=== PATIENT | male | born 1955 | race Caucasian/White ===

== ENCOUNTER 2024-03-16 17:25 | Emergency (ER) | payer MEDICARE, SELFPAY ==
[2024-03-16] VITALS (7 sets, daily range): BP systolic 154–210; BP diastolic 85–129; BMI 27.2
[2024-03-16 17:58] LABS: % Basophils 0.7 % (0-2); % Eosinophils 0.6 % (0-6); % Immature Granulocytes 0.4 % (0-0.5); % Lymphocytes 24.5 % (20.5-51.1); % Monocytes 11.2 % (1.7-9.3); % Neutrophils 62.6 % (42.2-75.2); Absolute Basophils 0.1 10^3/uL (0-0.2); Absolute Lymphocytes 1.7 10^3/uL (1.2-3.4); Absolute Monocytes 0.8 10^3/uL (0.1-0.6); Absolute Neutrophils 4.4 10^3/uL (1.4-6.5); Hematocrit 41.5 % (39.0-52.0); Hemoglobin 14.9 g/dL (13.0-18.0); Mean Corp Hgb Conc. 35.9 g/dL (33.0-37.0); Mean Corpuscular Volume 94.7 fL (80.0-94.0); Mean Platelet Volume 9.3 fL (7.4-10.4); Nucleated Red Blood Cells % 0 % (-); Platelet Count 168 10^3/uL (130-400); Red Blood Cell Count 4.38 10^6/uL (4.70-6.10); Red Cell Dist. Width 13.2 % (11.5-14.5); White Blood Cell Count 7.1 10^3/uL (4.8-10.8)
[2024-03-16 18:06] LABS: Alcohol 177 mg/dl; Blood Urea Nitrogen 11 mg/dl (9-20); Calcium 9.3 mg/dl (8.4-10.2); Carbon Dioxide 21 mmol/L (22-30); Chloride 100 mmol/L (98-107); Glucose 111 mg/dl (70-99); Potassium 3.7 mmol/L (3.5-5.1); Sodium 141 mmol/L (135-145); eGFR > 60.00
[2024-03-16 18:18] LABS: Amphetamines Negative (Negative); Barbiturates Negative (Negative); Benzodiazepines Negative (Negative); Buprenorphine Negative (Negative); Cocaine Negative (Negative); Marijuana Negative (Negative); Methadone Negative (Negative); Methamphetamines Negative (Negative); Opiates Negative (Negative); Phencyclidine Negative (Negative); Tricyclic Antidepressants Negative (Negative)
--- NOTE | 2024-03-16 19:10 | ED.GENMED ---
History of Present Illness
General
Chief Complaint: Alcohol Problem
Source: patient
Exam Limitations: none
Time Seen by Provider: 03/16/24 18:37
History of Present Illness
History of Present Illness:
This is a 68 year old male that comes in with c/o alcohol abuse and wanting Detox. States that he was sober for 5 years until April of last year. States that he has relapsed and over the year has been on and off again. States that know he has
been drinking daily. States that he buys a 750 liter of Vodka and will drink half of this daily. States that his friends know that he is drinking and know he wants Detox. States that his last drink was mid afternoon. Denies any fever, chills, chest
pain, SOB, abd pain, nausea, vomiting, diarrhea, headache, dizziness, urinary burning.
Past History
Past History
ED Past Medical History: HTN and Psychiatric (Depression)
ED Past Surgical History: Urological (Vasectomy)
Social History
Tobacco: Smoker (occasional cigar)
Alcohol: Daily (Vodka. Half of a 750 liter bottle)
Drug: None
Personal:
Living: alone
Review of Systems
Review of Systems
All Other Systems: ROS reviewed and negative except as documented in HPI and ROS
Constitutional: Reports no symptoms; Denies fever or chills
EENT: Reports no symptoms
Respiratory: Reports no symptoms; Denies cough or trouble breathing
Cardiac: Reports no symptoms; Denies chest pain
ABD/GI: Reports no symptoms; Denies abdominal pain, nausea, vomiting or diarrhea
: Reports no symptoms; Denies dysuria, frequency or urgency
Musculoskeletal: Reports no symptoms
Skin: Reports no symptoms
Neurological: Reports no symptoms; Denies dizzy or headache
Psychiatric: Reports no symptoms
Phy Exam
General Physical Exam
General Presentation: well appearing and no apparent distress
General age: appears stated age
General Skin: warm and dry
General Habitus: normal
General Mental: alert
General Hydration: appears well hydrated
ENT Exam
ENT Exam: TM's normal, pharynx normal and neck supple
Eye Exam
Eye Exam: EOMI
Cardiovascular Exam
Cardiovascular Exam: regular rate/rhythm, no edema, no murmur and normal peripheral pulses
Pulmonary Exam
Pulmonary Exam: lungs clear, no respiratory distress, no rales, chest non tender, no crackles, no rhonchi, no wheezing and no cough
Gastrointestinal Exam
Gastrointestinal Exam: normal bowel sounds, non tender, soft, no organomegaly, no pulsatile mass and non distended
Musculoskeletal Exam
Musculoskeletal Exam: full ROM and no edema
Skin Exam
Skin Exam: normal color, warm/dry, no rash and no petechia
Psychiatric Exam
Psychiatric Exam: normal mood/affect
Scores
Withdrawal Assessment of Alcohol
Withdrawal Assessment Completed?: Yes
Nausea and Vomiting: No nausea and no vomiting
Tactile Disturbances: None
Tremor: No tremor
Auditory Disturbances: Not present
Paroxysmal Sweats: No sweat visible
Visual Disturbances: Not present
Anxiety: Mild anxiety
Headache, Fullness in Head: Not present
Agitation: Normal activity
Orientation and clouding of sensorium: Oriented and can do serial additions
Total CIWA Score: 1
Alcohol Withdrawal Medication Recommendation: Equal to MSAS Score 0-4. Monitor & re-assess q2hrs, NO MEDICATION NEEDED
Course
Orders/Labs/Results
Orders:
Orders
03/16/24 17:41
Alcohol Urgent
Basic Metabolic Panel Urgent
Complete Blood Count/With Diff Urgent
Urine Drug Abuse Screen Urgent
Date Specimen was Collected: 03/16/24
Time Specimen was Collected: 17:33
03/16/24 21:07
HydrALAZINE [Apresoline] 10 mg IV NOW STA
Lisinopril [Zestril] 10 mg PO NOW STA
03/16/24 22:22
Lorazepam [Ativan] 1 mg PO NOW STA
Abnormal Lab Results
03/16/24
17:41
RBC 4.38 L 10^6/uL
(4.70-6.10)
MCV 94.7 H fL
(80.0-94.0)
MCH 34.0 H pg
(27.0-31.0)
Absolute Monos (auto) 0.8 H 10^3/uL
(0.1-0.6)
Monocytes % 11.2 H %
(1.7-9.3)
Carbon Dioxide 21 L mmol/L
(22-30)
Glucose 111 H mg/dl
(70-99)
03/16/24 17:41
03/16/24 17:41
Slight anemia, Hyperglycemia, Alcohol 177, Urine drug negative.
Vital Signs
Initial and Last Documented VS:
Initial Vital Signs
Temp Pulse Resp BP Pulse Ox
98.5 F 113 20 190/125 94
03/16/24 17:28 03/16/24 17:28 03/16/24 17:28 03/16/24 17:28 03/16/24 17:28
Last Documented Vital Signs
Temp Pulse Resp BP Pulse Ox
98.4 F 87 21 152/91 97
03/16/24 19:36 03/17/24 01:00 03/17/24 01:00 03/17/24 01:00 03/17/24 01:00
MDM/Problems Addressed
Differential Diagnosis Includes:
Alcohol abuse,
MDM/Problems Addressed:
This is a 68 year old male that comes in with c/o alcohol abuse. States that he is interested in Detox. States that he has been drinking a half of a 750liter bottle of Vodka.
Will check labs and have [facility] see patient.
[facility] and he will be picked up at 8:30am for [place].
Chronic conditions affecting care:
Alcohol abuse
Acute Exacerbation and/or Progression of Chronic Illness:
Alcohol abuse
*Pulse Oximetry
Patient hypoxic: no
*EKG
Interpreted by ED Provider?: NA
Rate: EKG- N/A
*Composition Worker Interpretation
Rate: Composition Worker- N/A
*Critical Care Note
Total Time (30-74mins, 75-104mins- exclusive of procedures): Not Applicable
ED Attending Note
-
Portions of this chart may have been created with voice recognition software.� Occasional wrong word or��sound alike� substitutions may have occurred due to the inherent limitations of voice recognition software.
Discharge Plan
Departure
Patient Disposition: Other
Date of Disposition: 03/17/24
Time of Disposition: 02:21
Patient with high blood pressure during this ER visit?: Yes
Condition: Good
Covid-19: Not Applicable
Discharge Problem:
Alcohol abuse
Instructions: Alcohol Use Disorder (DC), BLOOD PRESSURE
Prescriptions:
New
lisinopril 10 mg tablet
10 mg PO DAILY Qty: 30 0RF
Referrals:
NONE,* [Family Provider] -
Activity Restrictions/Additional Instructions:
As discussed, you have seen [facility] and have had arrangements made for you to be picked up at 8:30 am to go to [place]. Please follow up as directed. You have also been given a prescription for Lisinopril to help control your blood pressure.
Please take as directed. IF YOU HAVE ANY OTHER CONCERNS PLEASE RETURN TO THE EMERGENCY ROOM .
Interventions
Interventions:
*Risk Screen - Suicide Last Done: 03/16/24 17:28
*General Assessment Last Done: 03/16/24 19:38
*Neglect/Abuse Screening Last Done: 03/16/24 17:28
*ED COVID-19 Vaccine History Last Done: 03/16/24 19:37
ED- Neurological Assessment Last Done: 03/16/24 19:39
ED-Psychological Assessment Last Done: 03/16/24 19:39
Discharge Date and Time
Print Language: VINCENTIAN
[2024-03-16] MEDS: ZESTRIL 10 MG PO (21:15)
[2024-03-16] MEDS: APRESOLINE 10 MG IV (21:30)
[2024-03-16] MEDS: ATIVAN 1 MG PO (22:25)
[2024-03-17] VITALS (8 sets, daily range): BP systolic 135–152; BP diastolic 83–96
== END 2024-03-17 09:15 | disposition other institution (70) ==
LOC: EMR 17:25
PROVIDERS: Emergency Medicine; EMERGENCY PHYSICIAN Emergency Medicine
DX: F10.10 Alcohol abuse, uncomplicated (principal); Y90.6 Blood alcohol level of 120-199 mg/100 ml; I10 Essential (primary) hypertension; F32.A Depression, unspecified; F17.290 Nicotine dependence, other tobacco product, uncomplicated
CPT/HCPCS: 99285; 96374; 80048; 80306; 82077; 85025